=== PATIENT | female | born 1995 | race African-American/Black ===

== ENCOUNTER 2018-06-02 23:30 | Inpatient (IN) | payer OTHER ==
[2018-06-03] MEDS ORDERED: Methylergonovine 0.2 MG/ML VIAL IM PRN (03:46)
[2018-06-03] MEDS ORDERED: Butorphanol Tartrate 1 MG/ML VIAL SLOW IVP PRN (03:46)
[2018-06-03] MEDS ORDERED: HYDROcodone/Acetaminophen 5/325 mg Tablet PO PRN (03:46)
[2018-06-03] MEDS ORDERED: Lidocaine 1% (PF) 30 ML VIAL SC PRN (03:46)
[2018-06-03] MEDS ORDERED: Carboprost 250 MCG/ML AMP IM PRN (03:46)
[2018-06-03] MEDS ORDERED: Misoprostol 200 MCG TAB PR PRN (03:46)
[2018-06-03] MEDS ORDERED: NS / Oxytocin 40 units/1000ml 1,000 ML IV PRN (03:46)
[2018-06-03] MEDS ORDERED: Ondansetron PF 4 MG/2 ML Vial IVP PRN (03:46)
[2018-06-03] MEDS ORDERED: NS w/ Oxytocin 10 units 500 ML IV SCH (03:46)
[2018-06-03] MEDS ORDERED: Diphenoxylate HCl/Atropine Tablet PO PRN (03:46)
[2018-06-03] MEDS ORDERED: Ibuprofen 800 MG TAB PO PRN (03:46)
[2018-06-03 04:03] VITALS: BMI 41.1
[2018-06-03] MEDS ORDERED: Penicillin G Potassium 5 MILL.UNITS in Sodium Chloride 0.9% 100 ML IVPB SCH (04:15)
[2018-06-03 04:37] LABS: Hemoglobin 13.1 g/dL (12.0-16.0); Mean Corpuscular HGB CONC 33.5 g/dL (32.0-36.0); Mean Corpuscular Hemoglobin 30.1 pg (27.0-31.0); Mean Corpuscular Volume 89.7 fL (78.0-98.0); Mean Platelet Volume 9.5 fL (7.4-10.4); Platelet Count 161 thou/uL (130-400); Red Blood Cell (RBC) Count 4.36 mill/uL (4.20-5.40); White Blood Cell (WBC) Count 11.7 thou/uL (4.8-10.8)
[2018-06-03] MEDS: Misoprostol 100 MCG TAB PO SCH ×4 (05:03→21:39)
[2018-06-03 05:14] LABS: HBSAg Index 0.21 S/CO (0-0.99); Hep B Surf Ag Non-Reactive S/CO (NonReactive)
[2018-06-03 05:15] LABS: Syphilis Antibody Nonreactive (Nonreactive); Syphilis Antibody Index 0.03 S/CO (<1.00 Non-Reactive)
[2018-06-03] MEDS: Lactated Ringer's 1,000 ML IV SCH ×3 (08:23→21:39)
[2018-06-03] MEDS: Penicillin G 2.5 MILL.units 2.5 MILL.UNITS in Premix Bag 1 BAG IVPB SCH ×3 (17:07→19:52)
[2018-06-03] MEDS: NS w/ Oxytocin 10 units 500 ML IV SCH (19:52)
[2018-06-03] MEDS ORDERED: Misoprostol 100 MCG TAB ONE (21:12)
[2018-06-04] MEDS: Misoprostol 100 MCG TAB PO SCH ×3 (02:03→14:24)
[2018-06-04] MEDS: Penicillin G 2.5 MILL.units 2.5 MILL.UNITS in Premix Bag 1 BAG IVPB SCH ×5 (04:06→16:44)
[2018-06-04] MEDS ORDERED: Penicillin G Potassium 5 MILL.UNITS in Sodium Chloride 0.9% 100 ML IVPB SCH (04:15)
[2018-06-04] MEDS: Lactated Ringer's 1,000 ML IV SCH ×3 (04:37→23:37)
[2018-06-04] MEDS: NS w/ Oxytocin 10 units 500 ML IV SCH (04:39)
[2018-06-04] MEDS ORDERED: Bupivacaine/Epinephrine 0.25% 30 ML VIAL ONE (11:11)
[2018-06-04] MEDS ORDERED: Fentanyl 4 mcg/Bup 0.1% Cadd 100 ML ONE (12:40)
[2018-06-04] MEDS ORDERED: Ondansetron PF 4 MG/2 ML Vial ONE ×2 (13:37→19:27)
[2018-06-04] MEDS ORDERED: PHENYLEPHRINE-NS 100 MCG/ML 10 ML SYRINGE ONE ×2 (13:37→19:38)
[2018-06-04] MEDS ORDERED: Ketorolac Tromethamine 30 MG/ML VIAL ONE ×2 (13:37→19:27)
[2018-06-04] MEDS ORDERED: Dexamethasone 20 MG/5 ML VIAL ONE (13:37)
[2018-06-04] MEDS ORDERED: Promethazine HCl 25 MG/ML VIAL IM PRN ×2 (13:44→19:59)
[2018-06-04] MEDS ORDERED: Eucerin (Mineral Oil/Petrolatum,White) 30 gm Jar TOP PRN ×2 (13:44→19:59)
[2018-06-04] MEDS ORDERED: Ondansetron PF 4 MG/2 ML Vial IVP PRN ×3 (13:44→22:59)
[2018-06-04] MEDS ORDERED: Naloxone HCl 0.4 mg/ml Vial IVP PRN ×4 (13:44→19:59)
[2018-06-04] MEDS ORDERED: Lactated Ringer's 500 ML IV PRN (13:44)
[2018-06-04] MEDS ORDERED: Acetaminophen 325 MG TAB PO PRN ×2 (13:44→22:59)
[2018-06-04] MEDS ORDERED: ePHEDrine/0.9% NaCl/PF SYRINGE 50 mg/10 ml SLOW IVP PRN (13:44)
[2018-06-04] MEDS ORDERED: Communication Order-Pharmacy FS SCH ×2 (13:45→20:00)
[2018-06-04] MEDS ORDERED: Fentanyl 4 mcg/Bupivacaine 0.1% Cassette 100 ML EPIDURAL SCH (13:45)
[2018-06-04] MEDS: diphenhydrAMINE 50 MG/ML VIAL IVP PRN ×2 (17:14→23:41)
[2018-06-04] MEDS ORDERED: Lidocaine 2% 10 ML INJ ONE (19:21)
[2018-06-04] MEDS ORDERED: CEFAZOLIN 1 GM VIAL ONE (19:23)
[2018-06-04] MEDS ORDERED: Dexamethasone 4 mg/ml Vial ONE (19:27)
[2018-06-04] MEDS ORDERED: Oxytocin 10 UNITS/ML VIAL ONE ×2 (19:30→19:36)
[2018-06-04] MEDS ORDERED: Bupivacaine/Epinephrine 0.5% 10 ML VIAL ONE (19:32)
[2018-06-04] MEDS ORDERED: Bupivacaine 0.25% HCL 30 ML VIAL ONE (19:32)
[2018-06-04] MEDS ORDERED: MORPHINE 5 MG/10 ML PF VIAL ONE (19:33)
[2018-06-04 19:39] LABS: Actual Bicarbonate (HCO3a) 26.2 mEq/L (22-28); Base Excess (BEa) -2.2 mEq/L (-2.0 to +3.0)
[2018-06-04 19:41] LABS: Actual Bicarbonate (HCO3v) 24 mEq/L (22-28); Base Excess -1.9 mEq/L (-2.0 to +3.0); pH (Cord, venous) 7.34 (7.32-7.43)
[2018-06-04] MEDS ORDERED: Ondansetron HCl/PF 4 MG/2 ML Vial IVP PRN (19:59)
[2018-06-04] MEDS ORDERED: L&D-Morphine 4 MG/ML VIAL SLOW IVP PRN (19:59)
[2018-06-04] MEDS ORDERED: Naloxone HCl 0.4 mg/ml Vial IV PRN (19:59)
[2018-06-04] MEDS ORDERED: Promethazine HCl 25 MG SUPP PR PRN (19:59)
[2018-06-04] MEDS ORDERED: diphenhydrAMINE 50 MG/ML VIAL IVP PRN (19:59)
[2018-06-04] MEDS ORDERED: HYDROmorphone 2 MG/ML VIAL SLOW IVP PRN (19:59)
[2018-06-04] MEDS ORDERED: Meperidine HCl/PF 25 MG/ML VIAL SLOW IVP PRN (19:59)
[2018-06-04] MEDS ORDERED: Ketorolac Tromethamine 30 MG/ML VIAL IVP PRN (19:59)
--- NOTE | 2018-06-04 21:29 | RAD ---
AP VIEW ABDOMEN: 06/04/18 HISTORY: Evaluate for foreign body. AP view abdomen demonstrates a mid lumbar radiopaque radiodensity possibly representing a spinal type catheter. Left lower abdominal plastic type clip is seen over the left iliac region. Numerous transverse suprapubic cutaneous cyndi seen. No other definite foreign body seen. IMPRESSION: No definite visible evidence of radiopaque metallic density foreign body seen. POS: [facility]
[2018-06-04] MEDS ORDERED: METRONIDAZOLE IVPB SCH (22:59)
[2018-06-04] MEDS ORDERED: ADMIXTURE FEE IVPB SCH (22:59)
[2018-06-04] MEDS ORDERED: NS / Oxytocin 40 units/1000ml 1,000 ML IV SCH (22:59)
[2018-06-04] MEDS ORDERED: Simethicone Chewable 80 MG TAB PO PRN (22:59)
[2018-06-04] MEDS ORDERED: Adacel (T-DAP) 0.5 ML SYRINGE IM ONE (22:59)
[2018-06-04] MEDS ORDERED: Lanolin Ointment 7 GM TUBE TOP PRN (22:59)
[2018-06-04] MEDS ORDERED: diphenhydrAMINE 25 MG CAP PO PRN (22:59)
[2018-06-04] MEDS: CEFAZOLIN 2 GM in Premix Bag 1 BAG IVPB SCH (23:45)
[2018-06-05] MEDS ORDERED: Hydrocerin (Eucerin) Cream 120 gm Jar TOP PRN (00:38)
[2018-06-05] MEDS: ADMIXTURE FEE IVPB SCH ×4 (00:51→14:08)
[2018-06-05] MEDS: METRONIDAZOLE IVPB SCH ×4 (00:51→14:08)
[2018-06-05] MEDS: Ibuprofen 800 MG TAB PO SCH ×5 (01:53→23:17)
[2018-06-05] MEDS: CEFAZOLIN 2 GM in Premix Bag 1 BAG IVPB SCH ×3 (06:00→23:17)
[2018-06-05 06:31] LABS: Mean Corpuscular HGB CONC 33.4 g/dL (32.0-36.0); Mean Corpuscular Hemoglobin 30.4 pg (27.0-31.0); Mean Corpuscular Volume 91.1 fL (78.0-98.0); Platelet Count 137 thou/uL (130-400); Red Blood Cell (RBC) Count 3.62 mill/uL (4.20-5.40); White Blood Cell (WBC) Count 18.5 thou/uL (4.8-10.8)
[2018-06-05] MEDS: Ferrous Sulfate 325 MG TAB PO SCH ×2 (08:53→22:39)
[2018-06-05] MEDS: Docusate Calcium (SURFAK) 240 MG CAP PO SCH ×2 (08:53→22:38)
[2018-06-05] MEDS: Prenatal Vitamin 1 TAB PO SCH (08:53)
[2018-06-05] MEDS: Misoprostol 100 MCG TAB PO SCH (08:55)
[2018-06-05] MEDS: Lactated Ringer's 1,000 ML IV SCH (08:55)
[2018-06-05] MEDS: Penicillin G 2.5 MILL.units 2.5 MILL.UNITS in Premix Bag 1 BAG IVPB SCH (08:56)
[2018-06-05] MEDS: HYDROcodone/Acetaminophen 5/325 mg Tablet PO PRN ×2 (17:10→23:15)
[2018-06-06] MEDS: ADMIXTURE FEE IVPB SCH ×2 (00:35→06:03)
[2018-06-06] MEDS: METRONIDAZOLE IVPB SCH ×2 (00:35→06:03)
[2018-06-06] MEDS: HYDROcodone/Acetaminophen 5/325 mg Tablet PO PRN ×2 (06:07→23:54)
[2018-06-06] MEDS: CEFAZOLIN 2 GM in Premix Bag 1 BAG IVPB SCH (07:30)
[2018-06-06] MEDS: Ibuprofen 800 MG TAB PO SCH ×3 (07:30→23:53)
[2018-06-06] MEDS: Ferrous Sulfate 325 MG TAB PO SCH ×2 (07:30→22:07)
[2018-06-06] MEDS: Docusate Calcium (SURFAK) 240 MG CAP PO SCH ×2 (07:30→22:06)
[2018-06-06] MEDS: Prenatal Vitamin 1 TAB PO SCH (07:30)
--- NOTE | 2018-06-06 12:59 | OP ---
DATE OF PROCEDURE: 06/04/2018 RESIDENT SURGEON: Soledad Brandon DO. ATTENDING SURGEON: Chavez Garza MD PROCEDURE PERFORMED: Primary low transverse delivery. PREOPERATIVE DIAGNOSES: 1. Term intrauterine . 2. Non-reassuring heart tones with bradycardia in the 70s to 80s. 3. GBS positive and adequately treated x4. POSTOPERATIVE DIAGNOSES: 1. Primary low-transverse section for non-reassuring heart tones with bradycardia in the 70s to 80s. 2. Term intrauterine , delivered. 3. GBS positive and adequately treated x4. ANESTHESIA: Epidural. INDICATIONS: This is a 22-year-old, G1, P0, at 40 and 1 weeks, who initially presented for induction of labor, but underwent primary low transverse delivery for non-reassuring heart tones with bradycardia in the 70s to 80s for a period of approximately 8 minutes. PROCEDURE IN DETAIL: After risks, benefits, and alternatives were explained to the patient, she gave informed consent. Preoperative antibiotics included cefazolin 2 g IV. The patient was taken to the operating room and placed in the supine position with a left tilt and prepped and draped in the usual sterile fashion. A Pfannenstiel incision was made with a scalpel and carried down to the level of the fascia, which was sharply nicked. Fascial cut was extended bilaterally with Lombardo scissors. The inferior and superior edges of the cut fascial edges were elevated with Zach clamps, and the underlying rectus muscles were sharply and bluntly dissected free. The recti were divided digitally and retracted manually. The peritoneum was entered bluntly and retracted manually. Bladder blade was placed. A low transverse score was made with a scalpel and the uterus was entered in the midline with the scalpel. Clear fluid was seen. The hysterotomy was extended manually. was noted to be vertex and was delivered by fundal pressure. Mouth and nares were bulb suctioned. Cord was clamped and cut. Grossly normal male was handed to the waiting nurse. A segment of the cord was obtained for cord gas. Cord blood was then collected, and the placenta was sent for pathology. The uterus was externalized, and endometrium was curetted with a dry lap. The bladder blade was placed and the uterus was closed with a running locking 0 Vicryl suture followed by a running non-locking 0 Vicryl imbricating layer. Following this, hemostasis was noted. The abdomen was irrigated with saline and suctioned free of clots. Uterus was internalized, and hysterotomy was again noted to be hemostatic. Seprafilm was placed on the uterus, and then, the peritoneum was closed using 3-0 Vicryl. A small bleeder was noted on the left superior rectus muscle, which was sutured again with 3-0 Vicryl. The fascia was then closed using 0 PDS in a running nonlocking fashion. The subcutaneous tissue was irrigated, and bleeders were cauterized. The skin was approximated with cyndi and a pressure dressing was placed. Due to the nature of the being set, a preliminary count was unable to be performed. Then, x-ray was performed at the completion of this surgery, and there were not noted to be any internal laps or instruments. The patient tolerated the procedure well and was taken to the recovery room in stable condition. ESTIMATED BLOOD LOSS: 865 mL. COMPLICATIONS: None. SPECIMENS: Cord gas sent for analysis and cord blood sent to lab for blood type. FINDINGS: 1. A grossly normal male infant with Apgars of 9 and 9. 2. A grossly normal placenta with three-vessel cord sent for pathology. DRAINS: Macias to gravity with orange color urine in the bag, but yellow urine in the tubing. Job ID: [id number] [facility]
[2018-06-06] MEDS: Cephalexin 250 MG CAP PO SCH ×2 (16:04→22:06)
[2018-06-06] MEDS: metroNIDAZOLE 500 MG TAB PO SCH ×2 (16:04→22:06)
[2018-06-07 07:34] VITALS: BP 134/63; TEMP 98.1
[2018-06-07] MEDS: Cephalexin 250 MG CAP PO SCH (09:10)
[2018-06-07] MEDS: Docusate Calcium (SURFAK) 240 MG CAP PO SCH (09:11)
[2018-06-07] MEDS: metroNIDAZOLE 500 MG TAB PO SCH (09:11)
[2018-06-07] MEDS: Ibuprofen 800 MG TAB PO SCH (09:11)
[2018-06-07] MEDS: Prenatal Vitamin 1 TAB PO SCH (09:11)
[2018-06-07] MEDS: HYDROcodone/Acetaminophen 5/325 mg Tablet PO PRN (09:11)
[2018-06-07] MEDS: Ferrous Sulfate 325 MG TAB PO SCH (09:14)
== END 2018-06-07 14:09 | disposition home or self-care (01) | DRG 788 ==
LOC: L&D 06-03 03:32 → 3SW 06-04 22:57
PROVIDERS: ADMIT Family Medicine; ATTEND Family Medicine
PROC: 3E0P7VZ Introduction of Hormone into Female Reproductive, Via Natural or Artificial Opening (ICD-10-PCS; 2018-06-03)
PROC: 10D00Z1 Extraction of Products of Conception, Low, Open Approach (ICD-10-PCS; principal; 2018-06-04)
PROC: 10907ZC Drainage of Amniotic Fluid, Therapeutic from Products of Conception, Via Natural or Artificial Opening (ICD-10-PCS; 2018-06-04)
PROC: 10H07YZ Insertion of Other Device into Products of Conception, Via Natural or Artificial Opening (ICD-10-PCS; 2018-06-04)
DX: O99.824 Streptococcus B carrier state complicating childbirth (principal); O76 Abnormality in fetal heart rate and rhythm complicating labor and delivery; O77.0 Labor and delivery complicated by meconium in amniotic fluid; Z3A.40 40 weeks gestation of pregnancy; Z37.0 Single live birth
CPT/HCPCS: 36415; 51702; 74018; 82805; 85027; 86780; 86850; 86900; 86901; 86905; 87340; 88307; J0595; J0690; J1100; J1200; J1885; J2001; J2270; J2310; J2405; J2540; J2590; J3490; J7050; S0020